=== PATIENT | male | born 1970 | race American Indian/Alaskan Native ===

== ENCOUNTER 2016-12-10 23:37 | Inpatient (IN) | payer OTHER ==
[2016-12-11 00:27] LABS: Basophils % (Auto) 0.9 % (0.0-1.8); Eosinophils % (Auto) 0.4 % (0.0-4.3); Hematocrit 38.5 % (35.5-45.6); Hemoglobin 12.7 gm/dl (11.8-15.2); Mean Corpuscular HGB Conc 33 % (32-34); Mean Corpuscular Hemoglobin 31 pg (28-32); Mean Corpuscular Volume 93 fl (84-94); Platelet Count 200 K/mm3 (140-440); Red Blood Count 4.14 M/mm3 (3.65-5.03); Red Cell Distribution Width 13.9 % (13.2-15.2)
[2016-12-11 00:37] LABS: INR 1.18 (0.87-1.13)
[2016-12-11 00:44] LABS: BUN/Creatinine Ratio 8.18; Blood Urea Nitrogen 9 mg/dL (9-20); Calcium 9.5 mg/dL (8.4-10.2); Carbon Dioxide 26 mmol/L (22-30); Chloride 100.5 mmol/L (98-107); Glucose 148 mg/dL (75-100); Potassium 3.9 mmol/L (3.6-5.0); Sodium 141 mmol/L (137-145)
[2016-12-11 00:44] LABS: Creatine Kinase MB 3.4 ng/mL (0.0-4.0)
[2016-12-11 00:45] LABS: BUN/Creatinine Ratio 8.18; Blood Urea Nitrogen 9 mg/dL (9-20); Calcium 9.3 mg/dL (8.4-10.2); Carbon Dioxide 24 mmol/L (22-30); Chloride 100.7 mmol/L (98-107); Creatine Kinase 555 units/L (55-170); Glucose 145 mg/dL (75-100); Potassium 3.9 mmol/L (3.6-5.0); Sodium 141 mmol/L (137-145)
[2016-12-11 00:47] LABS: Anion Gap 18 mmol/L
[2016-12-11 00:47] LABS: Anion Gap 20 mmol/L
[2016-12-11] MEDS ORDERED: NACL 0.9% 1000 ML 2,000 ML ONE ×3 (19:18→19:19)
[2016-12-11] MEDS ORDERED: SUBLIMAZE IV ONE (19:19)
--- NOTE | 2016-12-11 19:20 | Emergency Department Report ---
ED General Adult HPI - General Chief complaint: Chest Pain Stated complaint: GROIN PAIN Time Seen by Provider: 12/11/16 19:06 Source: patient, RN notes reviewed Mode of arrival: Ambulatory Limitations: No Limitations - History of Present Illness Initial comments: This is a 46-year-old male, previously unknown to me. Has a past medical history of hernia repair. He denies other past medical history, and denies cocaine use. Patient presents to the ER complaining of right groin pain. He reports the pain feels like his hernia. It is sharp. It intermittently radiates down the right lower extremity. Pain has been present for the past day or so. While in triage, the patient did admit to chest pain. The chest pain is central. To me, the patient admitted to nausea, and some diaphoresis. No vomiting. No abdominal pain. There is no posterior leg pain. No leg swelling. Denies recent trips greater than 4 hours. Denies recent hospital admissions. Denies testicular pain. -: Gradual Location: chest, pelvis Quality: aching Consistency: intermittent Improves with: none Worsens with: none Associated Symptoms: chest pain, diaphoresis - Related Data Allergies Allergy/AdvReac Type Severity Reaction Status Date / Time No Known Allergies Allergy Unverified 12/11/16 00:05 ED Review of Systems ROS: Stated complaint: GROIN PAIN Other details as noted in HPI Constitutional: denies: fever, malaise Eyes: denies: eye discharge ENT: denies: epistaxis Respiratory: see HPI Cardiovascular: chest pain Gastrointestinal: abdominal pain Genitourinary: denies: urgency, dysuria Musculoskeletal: denies: back pain Skin: denies: lesions Neurological: denies: weakness ED Past Medical Hx - Past Medical History Previous Medical History?: Yes Additional medical history: hernia repair - Surgical History Past Surgical History?: No - Social History Smoking Status: Current Every Day Smoker Substance Use Type: None ED Physical Exam - General Limitations: No Limitations General appearance: alert, in no apparent distress - Head Head exam: Present: atraumatic, normocephalic - Eye Eye exam: Present: normal appearance, EOMI. Absent: nystagmus - ENT ENT exam: Present: normal exam, normal orophraynx, mucous membranes moist - Neck Neck exam: Present: normal inspection, full ROM. Absent: tenderness, meningismus - Respiratory Respiratory exam: Present: normal lung sounds bilaterally. Absent: respiratory distress, wheezes, rales, rhonchi, stridor, chest wall tenderness - Cardiovascular Cardiovascular Exam: Present: normal rhythm, bradycardia, normal heart sounds. Absent: systolic murmur, diastolic murmur, rubs, gallop - GI/Abdominal GI/Abdominal exam: Present: soft, normal bowel sounds, hernia, other (there is a right-sided inguinal hernia which is somewhat tender. Difficult to reduce). Absent: distended, tenderness, guarding, rigid - Rectal Rectal exam: Present: deferred - Extremities Exam Extremities exam: Present: normal inspection, full ROM, normal capillary refill , other (there are 2+ pulses in 4 extremities.). Absent: tenderness, pedal edema, joint swelling, calf tenderness - Back Exam Back exam: Present: normal inspection, full ROM. Absent: tenderness, CVA tenderness (R), CVA tenderness (L), muscle spasm, paraspinal tenderness, vertebral tenderness - Neurological Exam Neurological exam: Present: alert, oriented X3, other (Extraocular movements intact. Tongue midline. No facial droop. Facial sensation intact to light touch in the V1, V2, V3 distribution bilaterally. 5 and 5 strength in 4 extremities.. Sensation is intact to light touch in 4 extremities.). Absent: motor sensory deficit - Psychiatric Psychiatric exam: Present: normal affect, normal mood - Skin Skin exam: Present: warm, dry, intact, normal color. Absent: rash ED Course Vital Signs 12/11/16 12/11/16 12/11/16 00:06 17:42 19:00 Temperature 98.4 F 98.1 F 98.0 F Pulse Rate 58 L 71 Respiratory 22 18 Rate Blood Pressure 108/64 Blood Pressure 140/82 [Left] O2 Sat by Pulse 100 100 Oximetry - Reevaluation(s) Reevaluation #1: 12/11/16 19:52 Differential diagnosis: Hernia, strangulated versus incarcerated; acute coronary syndrome, pneumonia, pulmonary embolus, dissection Assessment and plan: 46-year-old male with groin pain, and resolved chest pain. The patient is afebrile, and speaking on the phone, and looks quite comfortable. He has equal pulses in 4 extremities. His EKG is morphologically abnormal without prior for comparison. 2 large bore IVs are ordered and established. Fluids are ordered wide open. A stat CAT scan of the chest/ abdomen/pelvis is ordered to exclude dissection. While interviewing the patient , he is noted to have a blood pressure in the 60s. However he is mentating, is calm and collected, this hypotension may have been artifact, as a manual blood pressure reads in the 140s. However, given his chest pain and groin pain, as well as resolved hypotension, I think it is prudent to exclude dissection at this time. Reevaluation #2: 12/11/16 23:15 CAT scan of the chest, abdomen, pelvis negative for dissection. Inflamed hernia is suggested on CAT scan. Dr. Johnson, the hospital physician, accepts the patient to her service. Patient to be admitted for chest pain, abnormal EKG, further inpatient evaluation. ED Medical Decision Making - Lab Data Result diagrams: 12/11/16 00:08 12/11/16 00:18 Vital Signs 12/11/16 12/11/16 00:06 17:42 Temperature 98.4 F 98.1 F Pulse Rate 58 L Respiratory 22 Rate Blood Pressure 108/64 O2 Sat by Pulse 100 Oximetry Lab Results 12/11/16 12/11/16 12/11/16 Range/Units 00:08 00:08 00:08 WBC 7.0 (4.5-11.0) K/mm3 RBC 4.14 (3.65-5.03) M/mm3 Hgb 12.7 (11.8-15.2) gm/dl Hct 38.5 (35.5-45.6) % MCV 93 (84-94) fl MCH 31 (28-32) pg MCHC 33 (32-34) % RDW 13.9 (13.2-15.2) % Plt Count 200 (140-440) K/mm3 Lymph % (Auto) 36.8 H (13.4-35.0) % [place] % (Auto) 9.6 H (0.0-7.3) % Eos % (Auto) 0.4 (0.0-4.3) % Baso % (Auto) 0.9 (0.0-1.8) % Lymph # 2.6 (1.2-5.4) K/mm3 [place] # 0.7 (0.0-0.8) K/mm3 Eos # 0.0 (0.0-0.4) K/mm3 Baso # 0.1 (0.0-0.1) K/mm3 Seg Neutrophils % 52.3 (40.0-70.0) % Seg Neutrophils # 3.7 (1.8-7.7) K/mm3 PT 14.9 (12.2-14.9) Sec. INR 1.18 H (0.87-1.13) APTT 23.0 L (24.2-36.6) Sec. Sodium 141 (137-145) mmol/L Potassium 3.9 (3.6-5.0) mmol/L Chloride 100.7 (98-107) mmol/L Carbon Dioxide 24 (22-30) mmol/L Anion Gap 20 mmol/L BUN 9 (9-20) mg/dL Creatinine 1.1 (0.8-1.5) mg/dL Estimated GFR > 60 ml/min BUN/Creatinine Ratio 8.18 % Glucose 145 H (75-100) mg/dL Calcium 9.3 (8.4-10.2) mg/dL Total Creatine Kinase 555 H (55-170) units/L CK-MB (CK-2) 3.4 (0.0-4.0) ng/mL CK-MB (CK-2) Rel Index 0.6 (0-4) Troponin T < 0.010 (0.00-0.029) ng/mL 12/11/16 Range/Units 00:18 WBC (4.5-11.0) K/mm3 RBC (3.65-5.03) M/mm3 Hgb (11.8-15.2) gm/dl Hct (35.5-45.6) % MCV (84-94) fl MCH (28-32) pg MCHC (32-34) % RDW (13.2-15.2) % Plt Count (140-440) K/mm3 Lymph % (Auto) (13.4-35.0) % [place] % (Auto) (0.0-7.3) % Eos % (Auto) (0.0-4.3) % Baso % (Auto) (0.0-1.8) % Lymph # (1.2-5.4) K/mm3 [place] # (0.0-0.8) K/mm3 Eos # (0.0-0.4) K/mm3 Baso # (0.0-0.1) K/mm3 Seg Neutrophils % (40.0-70.0) % Seg Neutrophils # (1.8-7.7) K/mm3 PT (12.2-14.9) Sec. INR (0.87-1.13) APTT (24.2-36.6) Sec. Sodium 141 (137-145) mmol/L Potassium 3.9 (3.6-5.0) mmol/L Chloride 100.5 (98-107) mmol/L Carbon Dioxide 26 (22-30) mmol/L Anion Gap 18 mmol/L BUN 9 (9-20) mg/dL Creatinine 1.1 (0.8-1.5) mg/dL Estimated GFR > 60 ml/min BUN/Creatinine Ratio 8.18 % Glucose 148 H (75-100) mg/dL Calcium 9.5 (8.4-10.2) mg/dL Total Creatine Kinase (55-170) units/L CK-MB (CK-2) (0.0-4.0) ng/mL CK-MB (CK-2) Rel Index (0-4) Troponin T < 0.010 (0.00-0.029) ng/mL - EKG Data 12/11/16 19:53 sinus bradycardia, 56 bpm, T-wave inversion 3, aVF. Biphasic T waves V3, V4, V5, abnormal EKG, not consistent with STEMI. - Radiology Data Radiology results: report reviewed, image reviewed Chest x-ray negative. CAT scan of the chest, abdomen, pelvis negative for dissection. Right-sided hernia is noted, appears mildly edematous, possible mild inflammation. Critical care attestation.: If time is entered above; I have spent that time in minutes in the direct care of this critically ill patient, excluding procedure time. ED Disposition Clinical Impression: Chest pain, Abnormal EKG, Groin pain Disposition: OP ADMITTED IP TO THIS HOSP Is pt being admited?: Yes Does the pt Need Aspirin: Yes Condition: Good Instructions: Chest Pain (ED) Referrals: PRIMARY CARE, [Primary Care Provider] - 3-5 Days
[2016-12-11] MEDS ORDERED: NACL ONE (19:21)
[2016-12-11] MEDS ORDERED: NACL 0.9% 500 ML IV SCH (20:00)
--- NOTE | 2016-12-11 20:28 | Cat Scan Report ---
FINAL REPORT EXAM: CT ANGIO CHEST HISTORY: ? [id number] TECHNIQUE: CT chest CT angiogram with reconstructions PRIORS: None. FINDINGS: There is no evidence of filling defect within the central pulmonary vasculature to suggest the presence of acute pulmonary embolus. No evidence of mediastinal pathologic lymph node enlargement Heart and great vessels are unremarkable. The aorta is normal in caliber. There is no evidence of intimal flap within thoracic aorta to suggest presence of dissection. Some pulsation and streak artifact is noted at the aortic root. No focal pulmonary infiltrate identified. No pleural fluid collection seen. No acute pulmonary abnormality noted. Visualized portion of the upper abdomen demonstrates no acute change. IMPRESSION: No acute abnormality. No evidence for thoracic aortic dissection or aneurysm.
--- NOTE | 2016-12-11 20:29 | Cat Scan Report ---
FINAL REPORT EXAM: CT ANGIO ABDOMEN PELVIS HISTORY: ? [id number] TECHNIQUE: CT abdomen and pelvis with intravenous contrast CT angiogram with multiplanar and maximum intensity projection reconstructions PRIORS: None. FINDINGS: No acute abnormality identified in the lung bases. No focal abnormality identified within the liver parenchyma. The spleen demonstrates normal size and attenuation. No pancreatic abnormalities seen. The kidneys demonstrate symmetric contrast enhancement. No evidence of hydronephrosis. Note is made of 1 centimeter low-density focus lower pole the right kidney there are 2 low-density foci mid to lower left kidney 0.8 and 1.3 centimeters. These are most consistent with cysts. The adrenal glands are unremarkable Abdominal aorta is normal in caliber.. No evidence for intimal flap to suggest presence for dissection. No evidence for aneurysmal dilatation. The celiac and SMA are unremarkable. The renal arteries are normal in caliber. No evidence for stenosis. No pathologically enlarged lymph nodes are identified. No signs of free fluid or free air No evidence of small bowel dilatation. Colon is nondistended. No pericolonic inflammatory change. Urinary bladder is unremarkable. IMPRESSION: Renal cysts noted. No evidence for aortic dissection or aneurysm.
[2016-12-11] MEDS ORDERED: SUBLIMAZE ONE (21:41)
[2016-12-11] MEDS ORDERED: BABY ASPIRIN PO ONE (23:16)
--- NOTE | 2016-12-12 01:28 | Admit Criteria Form ---
Admission Criteria Documentation: CHEST PAIN: OBSERVATION CARE USE THIS FORM ONLY WHEN INPATIENT ADMISSION CRITERIA ARE NOT MET. (Place X for any and all applicable criteria): Placement for observation care may be appropriate for a patient with chest pain and ANY ONE of the following (1)(2)(3)(4)(5): []I. Suspected cardiac ischemia with nondiagnostic initial evaluation (eg, ECG, cardiac biomarkers) requiring further immediate evaluation such as stress testing and repeat laboratory testing to clarify diagnosis []II. Other suspected diagnosis requiring observation and monitoring during diagnostic evaluation (eg, pulmonary embolus, aortic dissection, pneumothorax, pericarditis, GI bleeding) (6)(7)(8)(9) [X]III. Other observation care needs (Use General Criteria: Observation Care) The original [employer] content created by [employer] has been revised. The portions of the content which have been revised are identified through the use of italic text, and [facility] [employer] has neither reviewed nor approved the modified material. All other unmodified content is copyright [facility] [email or web address]. Please see references footnoted in the original [employer] [employer] edition 2015 Admission Criteria Met: Pending
--- NOTE | 2016-12-12 02:09 | Admit Criteria Form ---
Admission Criteria Documentation: CARDIOLOGY GRG Clinical Indications for Admission to Inpatient Care ( Place 'X' for any and all applicable criteria): Hospital admission is needed for appropriate care of the patient because of ANY ONE of the following (1): [ ] I. Hemodynamic instability as indicated by ALL of the following (1)(2)(3) (4)(5) [ ]a) Vital signs or other findings not as expected for chronic patient condition or baseline [ ]b) Instability indicated by ANY ONE of the following: [ ]i) Hypotension [ ]ii) Symptomatic Tachycardia unresponsive to treatment ( e.g., analgesia, fluids, sedation as indicated) [ ]iii) Inadequate perfusion indicated by ANY ONE of the following: [ ] 1) Lactic acidosis (> 2 mmol/L) [ ] 2) New abnormal capillary refill (> 3 seconds) [ ] 3) Reduced urine output [ ] 4) New altered mental status [ ]iv) Orthostatic vital sign changes unresponsive to treatment (e.g., fluids) [ ]v) IV inotropic or vasopressor medication required to maintain adequate blood pressure or perfusion [ ] II. Severe heart failure as indicated by ANY ONE of the following(17)(18) [ ]a) Respiratory distress [ ]b) Hypotension [ ]c) Anasarca (refractory to outpatient therapy) [ ]d) Cardiac arrhythmias of immediate concern [ ]e) Myocardial ischemia [ ] III. Cardiac arrhythmias or findings of immediate concern indicated by ANY ONE of the following (19)(20): [ ] a) Heart rhythms that are inherently dangerous or unstable indicated by ANY ONE of the following (21)(22)(23): [ ] i) Resuscitated ventricular fibrillation or cardiac arrest [ ] ii) Ventricular escape rhythm [ ] iii) Sustained ventricular tachycardia (30 seconds or more of ventricular rhythm at greater than 100 beats per minute) [ ] iv) Nonsustained ventricular tachycardia and ANY ONE of the following: [ ] 1) Suspected cardiac ischemia as cause or consequence of ventricular tachycardia [ ] 2) In setting of acute myocarditis [ ] b) Unstable cardiac conduction defects indicated by ANY ONE of the following(23)(24)(25) [ ] i) Type II second-degree atrioventricular block [ ]ii) Third-degree atrioventricular block [ ]iii) New-onset left bundle branch block with suspected myocardial ischemia [ ]c) Any heart rhythm and ANY ONE of the following (21)(22)(26)(27) (28) [ ] i) Continuous long-term ECG monitoring needed (e.g., initiation of drug requiring monitoring for more than 24 hours) [ ] ii) Patient has automatic implanted cardioverter defibrillator that is repeatedly firing, malfunctioning, or in need of immediate adjustment of settings beyond the scope of ambulatory or observation care [ ]d) Heart rhythms of concern due to ANY ONE of the following: [ ] i) Hypotension [ ] ii) Respiratory distress [ ] iii) Association with other significant symptoms (e.g., bradycardia with syncope or ongoing dizziness, supraventricular tachycardia with chest pain (14)(15)(17) [ ] IV. Monitoring for cardiac contusion beyond the scope of observation care needed [A](30)(31)(32) [ ] V. Surgical or device complication (e.g., valve replacement complication , pacemaker dysfunction) (35)(41)(44)(45)(46) [ ] . Inpatient palliative care needed. [B](49) Also use Inpatient Palliative Care Criteria [ ] VII. Nonbacterial thrombotic (marantic) endocarditis (36)(43)(47)(48) [ X] VIII. Cardiology condition, symptom, or finding for which emergency and observation care has failed or are not considered appropriate. [ ] IX. Acute valvular disease requiring inpatient as indicated by ANY ONE of the following (41) [ ]a) Acute valvular regurgitation (42) [ ]b) Noninfectious valvulitis (43) [ ]c) Obstructive valve thrombosis [ ]d) Paravalvular leak [ ]e) Other significant valvular disorder remaining after emergency or observation level of care (as appropriate) [ ]X. Pericardial disease requiring inpatient treatment as indicated by ANY ONE of the following (33)(34)(35)(36)(37) [ ]a) Suspected tamponade (38)(39)(40) [ ]b) Hemopericardium [ ]c) Other significant pericardial disorder remaining after emergency or observation level of care (as appropriate) [ ] XI. Cardiac ischemia beyond scope of emergency and observation care. [ ] XII. Hypertension requiring inpatient treatment as indicated by ANY ONE of the following (6)(7)(8) [ ]a) SBP greater than 220 mm Hg or DBP greater than 120 mmHg despite treatment [ ]b) SBP greater than 140 mm Hg or DBP greater than 100 mm Hg with evidence of acute end organ damage as indicated by ANY ONE of the following [ ] i) Altered mental status [ ] ii) Acute renal failure as indicated by new onset of ANY ONE of the following (9)(10)(11)(12)(13) [ ]1) 3-fold rise in serum creatinine from baseline [ ]2) Serum creatinine greater than 4 mg/dL ( 354 micromoles/L) with acute rise greater than 0.5 mg/dL (44.2 micromoles/L) [ ]3) Reduction of more than 75% in estimated glomerular filtration rate from baseline [ ]4) Estimated glomerular filtration rate less than 35 mL/min/1.73m2 (0.59 mL/sec/1.73m2) in child up to 18 years of age [ ]5) Cessation of urine output indicated by ALL of the following [ ]A. Adequate volume status [ ]B. Inadequate urine output as indicated by ANY ONE of the following [ ]a. Urine output less than 0.3 mL/kg/hr for 24 hours [ ]b. Anuria (urine output less than 0.1 mL/kg/hr) for 12 hours [ ] iii) Aortic dissection [ ] iv) Myocardial Ischemia [ ] v) Left ventricular heart failure [ ]vi) Retinal Hemorrhage [ ]vii) Other significant finding [ ]c) Hypertension in child requiring inpatient treatment as indicated by ALL of the following(14)(15)(16) [ ] i) Outpatient treatment not effective, not available, or not appropriate [ ]ii) SBP or DBP greater than 95th percentile for age [ ]iii) Evidence of acute end organ damage as indicated by ANY ONE of the following [ ]1) Altered mental status [ ]2) Acute renal failure as indicated by new onset of ANY ONE of the following(9)(10)(11)(12)(13) [ ]A. 3-fold rise in serum creatinine from baseline [ ]B. Serum creatinine greater than 4 mg/dL (354 micromoles/L) with acute rise greater than 0.5 mg/dL (44.2 micromoles/L) [ ]C. Reduction of more than 75% in estimated glomerular filtration rate from baseline [ ]D. Estimated glomerular filtration rate less than 35 mL/min/1.73m2 (0.59 mL/sec/1.73m2) in child up to 18 years of age [ ]E. Cessation of urine output indicated by ALL of the following [ ]a. Adequate volume status [ ]b. Inadequate urine output as indicated by ANY ONE of the following [ ]i) Urine output less than 0.3 mL/kg/hr for 24 hours [ ]ii) Anuria ( urine output less than 0.1 mL/kg/hr) for 12 hours [ ]3) Severe headache [ ]4) Visual disturbance [ ]5) Retinal hemorrhage [ ]6) Other significant finding [ ]XIII. Complications of transplanted heart indicated by ANY ONE of the following(61): [ ]a) Acute graft rejection requiring inpatient management (eg, intravenous immunosuppression)(62)(63) [ ]b) Acute graft heart failure indicated by ANY ONE of the following(64): [ ]i) Hemodynamic instability [ ]ii) Cardiac arrhythmias of immediate concern [ ]iii) Pulmonary edema that is very severe (eg, mechanical ventilation needed, imminent or likely, need for 100% oxygen to keep oxygen saturation above 90%) [ ]iv) Pulmonary edema that is persistent as indicated by ALL of the following: [ ]1) New need for oxygen therapy to keep oxygen saturation above 90% (or increased FiO2 need from baseline) [ ]2) Has not improved sufficiently with emergency department or observation care IV diuretics or other heart failure treatments[E] [ ]v) Altered mental status that is severe or persistent [ ]vi) Increased creatinine (new on laboratory test) with reduction of more than 50% in estimated glomerular filtration rate from baseline [ ]vii) Progressively (ongoing) rising creatinine (known from past laboratory test) with reduction of more than 25% in estimated glomerular filtration rate from baseline [ ]viii) Acute renal failure [ ]ix) Acute peripheral ischemia (eg, examination shows pulseless, cool, mottled, or cyanotic extremity) [ ]x) Pulmonary artery catheter monitoring needed [ ]xi) Other sign or symptom of heart failure requiring inpatient treatment (ie, too severe or not responsive to outpatient and observation care treatment) [ ]c) Infection requiring inpatient management (eg, Hemodynamic instability, need for intravenous antimicrobial treatment)(66)(67)(68)(69)(70) [ ]d) Cardiac allograft vasculopathy requiring inpatient management ( eg evidence of cardiac ischemia)(71) [ ]e) Other complication of transplanted heart (eg, stroke, severe pulmonary hypertension, severe valvular dysfunction) requiring inpatient management(72) The original [facility] [employer] content created by [facility] has been revised. The portions of the content which have been revised are identified through the use of italic text or in bold, and [facility] has neither reviewed nor approved the modified material. All other unmodified content is copyright [facility] [employer]. Please see references footnoted in the original [facility] [employer] edition 2016 Admission Criteria Met: Yes
[2016-12-12] MEDS ORDERED: DULCOLAX PR PRN (02:22)
[2016-12-12] MEDS ORDERED: SODIUM CHLORIDE FLUSH SYRINGE 10 ML IV PRN (02:22)
[2016-12-12] MEDS ORDERED: ZOFRAN IV PRN (02:22)
[2016-12-12] MEDS ORDERED: TYLENOL PO PRN (02:22)
[2016-12-12] MEDS ORDERED: MILK OF MAGNESIA PO PRN (02:22)
[2016-12-12 03:21] LABS: Basophils % (Auto) 0.8 % (0.0-1.8); Eosinophils % (Auto) 4.5 % (0.0-4.3); Hematocrit 35.8 % (35.5-45.6); Hemoglobin 11.9 gm/dl (11.8-15.2); Mean Corpuscular HGB Conc 33 % (32-34); Mean Corpuscular Hemoglobin 31 pg (28-32); Mean Corpuscular Volume 92 fl (84-94); Platelet Count 168 K/mm3 (140-440); Red Blood Count 3.88 M/mm3 (3.65-5.03); White Blood Count 6.7 K/mm3 (4.5-11.0)
[2016-12-12 03:44] LABS: BUN/Creatinine Ratio 11.11; Blood Urea Nitrogen 10 mg/dL (9-20); Calcium 8.2 mg/dL (8.4-10.2); Carbon Dioxide 27 mmol/L (22-30); Chloride 103.6 mmol/L (98-107); Glucose 112 mg/dL (75-100); Potassium 3.9 mmol/L (3.6-5.0); Sodium 139 mmol/L (137-145)
[2016-12-12 03:46] LABS: Creatine Kinase MB 2.7 ng/mL (0.0-4.0)
[2016-12-12 03:48] LABS: Anion Gap 12 mmol/L
--- NOTE | 2016-12-12 06:09 | History and Physical Report ---
History of Present Illness Date of examination: 12/12/16 Date of admission: 12/11/16 23:15 History of present illness: This a 46-year-old man with no medical problem comes emergency room with complaints of left chest pain. Pain is in the left chest which she describes as sharp pain, intermittent in nature lasting for 5 minutes, no radiation, intensity 6/10, he cannot identify exacerbating or relieving factors. He admits to nausea, diaphoresis, no palpitations, no previous stress tests. Also complaining of right groin pain which she status a constant pain, sharp started yesterday, intensity 8/10 radiating down to the knee area patient has a hernia repair done in that area Patient denies cough, abdominal pain, hematochezia, dysuria, frequency, focal weakness, dysarthria, fever chills, polydipsia polyuria, hot or cold intolerance , easy bruisability, or rash or bleeding from mucosal membrane, rhinorrhea, epistaxis, earache, tinnitus, blurry vision, eye discharge, anxiety, depression. Other review of systems negative PAST SURGICAL HISTORY:hernia repair SOCIAL HISTORY: Denies alcohol, tobacco, drugs FAMILY HISTORY: Hypertension Medications and Allergies Allergies Allergy/AdvReac Type Severity Reaction Status Date / Time No Known Allergies Allergy Unverified 12/11/16 00:05 Home Medications Medication Instructions Recorded Confirmed Last Taken Type No Known Home Medications [No 12/11/16 12/11/16 Unknown History Reported Home Medications] Active Meds: Active Medications Acetaminophen (Tylenol) 650 mg PO Q4H PRN PRN Reason: Pain MILD(1-3)/Fever >100.5/WARNER Aspirin (Baby Aspirin) 81 mg PO QDAY CAT Bisacodyl (Dulcolax) 10 mg FL QDAY PRN PRN Reason: Constipation unrelieved by MOM Enoxaparin Sodium (Lovenox) 40 mg SUB-Q QDAY CAT Magnesium Hydroxide (Milk Of Magnesia) 30 ml PO Q4H PRN PRN Reason: Constipation Morphine Sulfate (Morphine) 2 mg IV Q4H PRN PRN Reason: Pain, Moderate (4-6) Ondansetron HCl (Zofran) 4 mg IV Q8H PRN PRN Reason: N/V unrelieved by Reglan Sodium Chloride (Sodium Chloride Flush Syringe 10 Ml) 10 ml IV PRN PRN PRN Reason: LINE FLUSH Exam - Physical Exam Narrative exam: Gen. appearance: Patient lying in bed, no apparent distress HEENT: Normocephalic, atraumatic, pupils equally round and reactive to light, extraocular movement intact, and no sclericterus,. No JVD or thyromegaly or nodule,neck supple, no carotid bruit ,mucous membranes moist, no exudate or erythema Heart: S1, S2, regular rate and rhythm Lungs: Clear to auscultation bilaterally, breathing comfortable Abdomen: Positive bowel sounds, nontender, nondistended, no organomegaly Extremity: No edema, cyanosis, clubbing Skin: No rash, nodules, warm, dry Neuro: Oriented 3, cranial nerves II-12 intact, speech is fluent, motor and sensory intact - Constitutional Vitals: Temp Pulse Resp BP Pulse Ox 98.2 F 89 20 123/71 99 12/12/16 05:07 12/12/16 05:07 12/12/16 05:07 12/12/16 05:07 12/12/16 05:07 Results - Labs CBC & Chem 7: 12/12/16 02:47 12/12/16 02:47 Labs: Abnormal lab results 12/12/16 12/12/16 12/12/16 Range/Units 02:47 02:47 02:47 Lymph % (Auto) 46.5 H (13.4-35.0) % Nelson % (Auto) 9.0 H (0.0-7.3) % Eos % (Auto) 4.5 H (0.0-4.3) % Seg Neutrophils % 39.2 L (40.0-70.0) % Glucose 112 H (75-100) mg/dL Calcium 8.2 L (8.4-10.2) mg/dL Total Creatine Kinase 368 H (55-170) units/L - Imaging and Cardiology EKG: image reviewed (nsr 56) Chest x-ray: image reviewed CT scan - abdomen: report reviewed CT scan - chest: report reviewed Assessment and Plan Groin pain, rule out of hernia recurrence Chest pain, rule out ACS Admit to medicine Consults surgery, check cardiac enzymes, lipid profile and obtain a stress test Start aspirin, IV morphine and DVT prophylaxis
--- NOTE | 2016-12-12 09:00 | XRay Report ---
CHEST ONE VIEW INDICATION: Chest pain. COMPARISON: Accompanying CTA. FINDINGS: Portable, single, frontal chest radiograph demonstrates normal cardiomediastinal silhouette. Clear lungs. Unremarkable bones. Extrinsic EKG leads. CONCLUSION: No acute disease in the chest. Thank you for the opportunity to participate in this patient's care.
--- NOTE | 2016-12-12 10:32 | Treadmill Report ---
NUCLEAR STRESS TEST REASON FOR STUDY: Chest pain. READING PHYSICIAN: Sergio Trammell MD IMAGING PROTOCOL: The patient received 10 mCi of Technetium 99m Tetrofosmin for resting image and 28 mCi of Technetium 99m Tetrofosmin for stress imaging. The imaging for the whole procedure was completed 30-90 minutes following the initial injection of Technetium 99m tetrofosmin. The SPECT imaging in the 180 degree arc was performed in the right anterior oblique projection. Computerized reconstruction of the images was performed for analysis. IMAGING RESULTS: Normal cavity size from stress to rest. Normal distribution of radionuclide in the anterior, inferior, septal, and apical regions. Gated SPECT, EF on visualization appears to be around 45-50%. The patient exercised on Frank protocol for 12 minutes and 30 seconds, had no exaggerated BP response to exercise, no EKG changes suggestive of ischemia, achieved 84% maximum heart rate. SUMMARY: 1. Negative treadmill EKG. 2. Excellent exercise capacity, 12-1/2 minutes on Frank protocol. 3. No exaggerated BP response to exercise. 4. Normal rest and stress myocardial perfusion scan. No significant stress ischemia. No wall motion abnormality. Gated SPECT, EF around 45-50%. JOB# [id number] BASSAM/MICHELLE
[2016-12-12] MEDS: LOVENOX SUB-Q SCH (10:41)
[2016-12-12] MEDS: MORPHINE IV PRN ×3 (10:42→22:07)
[2016-12-12] MEDS: BABY ASPIRIN PO SCH (10:42)
--- NOTE | 2016-12-12 14:04 | Progress Note ---
Assessment and Plan [facility] normal Antoine needs out pt eval no ghematuria consult dictated Subjective Date of service: 12/12/16 Principal diagnosis: prostate check Objective - Constitutional Vitals: Vital Signs - 12hr 12/12/16 12/12/16 12/12/16 05:07 10:00 12:00 Temperature 98.2 F 98.0 F Pulse Rate [ 89 84 Radial] Respiratory 20 18 Rate Blood Pressure 123/71 124/80 [Left Arm] O2 Sat by Pulse 99 98 99 Oximetry General appearance: Present: no acute distress - Neck Neck: supple - Respiratory Respiratory effort: normal Extremities: no ischemia - Gastrointestinal General gastrointestinal: Present: soft, non-tender - Labs CBC & Chem 7: 12/12/16 02:47 12/12/16 02:47 Labs: Abnormal lab results 12/12/16 12/12/16 12/12/16 Range/Units 02:47 02:47 02:47 Lymph % (Auto) 46.5 H (13.4-35.0) % [place] % (Auto) 9.0 H (0.0-7.3) % Eos % (Auto) 4.5 H (0.0-4.3) % Seg Neutrophils % 39.2 L (40.0-70.0) % Glucose 112 H (75-100) mg/dL Calcium 8.2 L (8.4-10.2) mg/dL Total Creatine Kinase 368 H (55-170) units/L
--- NOTE | 2016-12-12 16:45 | Anesthesia Consultation ---
Anesthesia Consult and Med Hx - Airway Anesthetic Teeth Evaluation: Good (Patient denies any dental issues - some teeth may be missing) ROM Head & Neck: Adequate Mental/Hyoid Distance: Adequate Mallampati Class: Class III Intubation Access Assessment: Possibly Difficult (Anterior - could not see much in back of mouth) - Pulmonary Exam CTA: Yes - Cardiac Exam Cardiac Exam: RRR (Patient admitted with chest pain - tests that have been done do not indicate a cardiac issue) - Pre-Operative Health Status ASA Pre-Surgery Classification: ASA1 (Patient takes no at home meds. indicates no health problems other than groin pain.), ASA2 Proposed Anesthetic Plan: General (Patient has painful recall from previous hernia surgery - asked that the anesthesia be increased 3 fold - pt informed not possible; but a a BIS moniter could be used - he agreed.) - Pulmonary Hx Smoking: (patient denies ) - Cardiovascular System Hx Coronary Artery Disease: (see cardiac note under heart rate above)
--- NOTE | 2016-12-12 16:51 | Anesthesia Consultation ---
Anesthesia Consult and Med Hx Date of service: 12/12/16 - Airway Anesthetic Teeth Evaluation: Good (Patient denies any dental issues - some may be missing) ROM Head & Neck: Adequate Mental/Hyoid Distance: Adequate Mallampati Class: Class III Intubation Access Assessment: Possibly Difficult - Pulmonary Exam CTA: Yes - Cardiac Exam Cardiac Exam: RRR - Pre-Operative Health Status ASA Pre-Surgery Classification: ASA2 Proposed Anesthetic Plan: General (When patient had first hernia surgery, he says he was )
--- NOTE | 2016-12-13 03:41 | Consultation ---
HISTORY OF PRESENT ILLNESS: The patient is a 46-year-old gentleman who presents with recurrent inguinal hernia. He is surgery. He wanted to have his prostate checked while he was in the hospital. He denies any family history of prostatism and other than occasional frequency, he has a good flow. He has never had any manipulation. PAST MEDICAL HISTORY: Hernia repair. SOCIAL HISTORY: Denied. FAMILY HISTORY: Other than vascular disease, negative. ALLERGIES: Negative. MEDICATIONS: Regularly negative. REVIEW OF SYSTEMS: He has no gross hematuria, no dysuria, no discharge. PHYSICAL EXAMINATION: GENERAL: He is awake, alert. He is in no distress. ABDOMEN: Soft, nondistended. Right inguinal hernia. GENITOURINARY: Genitalia, circumcised, testes descended bilaterally. Right hernia is noted. Digital rectal exam normal sphincter tone, 10-15 gram prostate, no nodules. IMPRESSION: Normal exam. He is being evaluated for hernia surgery tomorrow. He will need outpatient evaluation with a PSA and an exam, which I explained to him over the next month or two after he recovers. He understands this and we will follow him up as an outpatient. JOB# [id number] ROMERO/MICHELLE
--- NOTE | 2016-12-13 05:14 | Consultation ---
HISTORY OF PRESENT ILLNESS: The patient was seen yesterday. He was admitted to the hospital because of severe pain that he developed in the right inguinal area for about 2 days' duration. He had nausea, but no vomiting. He gives a history of right inguinal hernia repaired 2 years ago. He is a bus or truck garage mechanic and this gave him pain at that point and he had an operation. He has been doing fairly well without any problem. He continued driving his truck without any problem. The patient was admitted by Dr. Debbie Johnson, who saw him this roll builder and according to the notes, the pain was continuous as mentioned above, and he could feel as if there is something there. CAT scan that showed evidence of hernia in the area. Along with that the patient complains of frequency and urgency. He goes to the bathroom 3 to 4 times every night. He never had any other operation. He is not allergic to any medicines. He does not take any medications on a regular basis. PHYSICAL EXAMINATION: GENERAL: At this point showed well preserved healthy man. He is in no distress. He is in pain; however, to the right inguinal area. He is taking his lunch. HEAD AND NECK: Negative. NECK: Supple. CHEST: Essentially clear. HEART: Sounds normal. ABDOMEN: Protuberant, soft. There is well localized tenderness in the right inguinal aspect with fullness in the area with soft tissue mass that presents to be about 3 x 3 x 2 cm. It is fairly tender. GENITALIA: Showed normal male genitalia. EXTREMITIES: Showed no significant edema. IMPRESSION AND PLAN: Recurrent right inguinal hernia ? status post surgery 2 years ago. rule out benign prostatic hyperplasia. I had a lengthy talk with the patient as to the continuity of his pain. This would require surgical intervention. I would like to do it as soon as possible. We will have to do this not today, tomorrow morning and the reason that he was eating when I saw him, so he gave us the permission to do that. I have got to call to see him because of the above symptoms of his prostate. Upon admission, his creatinine was 1.1, today is 0.9. His white count is 6.7 today. This patient is for surgery. I am going to have Dr. Pickens to see him and then we will go from there. [facility]# [id number] GENTRY/MICHELLE LIVING[place]ON
[2016-12-13] MEDS ORDERED: LACTATED RINGERS 1,000 ML IV SCH (07:00)
[2016-12-13] MEDS ORDERED: PEPCID IV NR ×2 (07:00→14:00)
[2016-12-13] MEDS ORDERED: VERSED IV NR (07:00)
[2016-12-13] MEDS: MORPHINE IV PRN ×2 (08:42→20:43)
[2016-12-13] MEDS: BABY ASPIRIN PO SCH (09:40)
[2016-12-13] MEDS: LOVENOX SUB-Q SCH (09:41)
--- NOTE | 2016-12-13 10:03 | Progress Note ---
Assessment and Plan Assessment and plan: 1. Chest pain. Exercise stress thallium was found to be negative. Etiology is likely secondary to GERD. 2. GERD. Protonix daily. 3. Recurrent right inguinal hernia. Patient for surgery today. History Interval history: No new complaints. No chest pain no shortness of breath. Hospitalist Physical - Constitutional Vitals: Temp Pulse Resp BP Pulse Ox 98.3 F 58 L 20 122/70 100 12/13/16 05:10 12/13/16 05:10 12/13/16 08:42 12/13/16 05:10 12/13/16 08:36 General appearance: Present: no acute distress - EENT Eyes: Present: PERRL, EOM intact ENT: hearing intact, clear oral mucosa, dentition normal - Neck Neck: Present: supple, normal ROM - Respiratory Respiratory effort: normal Respiratory: bilateral: CTA - Cardiovascular Rhythm: regular Heart Sounds: Present: S1 & S2. Absent: gallop, rub - Extremities Extremities: no ischemia, No edema, Full ROM - Abdominal General gastrointestinal: soft, non-tender, non-distended, normal bowel sounds - Integumentary Integumentary: Present: clear, warm, dry - Neurologic Neurologic: CNII-XII intact, moves all extremities Results - Labs CBC & Chem 7: 12/12/16 02:47 12/12/16 02:47 Labs: Laboratory Last Values WBC 6.7 K/mm3 (4.5-11.0) 12/12/16 02:47 RBC 3.88 M/mm3 (3.65-5.03) 12/12/16 02:47 Hgb 11.9 gm/dl (11.8-15.2) 12/12/16 02:47 Hct 35.8 % (35.5-45.6) 12/12/16 02:47 MCV 92 fl (84-94) 12/12/16 02:47 MCH 31 pg (28-32) 12/12/16 02:47 MCHC 33 % (32-34) 12/12/16 02:47 RDW 14.0 % (13.2-15.2) 12/12/16 02:47 Plt Count 168 K/mm3 (140-440) 12/12/16 02:47 Lymph % (Auto) 46.5 % (13.4-35.0) H 12/12/16 02:47 [place] % (Auto) 9.0 % (0.0-7.3) H 12/12/16 02:47 Eos % (Auto) 4.5 % (0.0-4.3) H 12/12/16 02:47 Baso % (Auto) 0.8 % (0.0-1.8) 12/12/16 02:47 Lymph # 3.1 K/mm3 (1.2-5.4) 12/12/16 02:47 [place]oca # 0.6 K/mm3 (0.0-0.8) 12/12/16 02:47 Eos # 0.3 K/mm3 (0.0-0.4) 12/12/16 02:47 Baso # 0.1 K/mm3 (0.0-0.1) 12/12/16 02:47 Seg Neutrophils % 39.2 % (40.0-70.0) L 12/12/16 02:47 Seg Neutrophils # 2.6 K/mm3 (1.8-7.7) 12/12/16 02:47 PT 14.9 Sec. (12.2-14.9) 12/11/16 00:08 INR 1.18 (0.87-1.13) H 12/11/16 00:08 APTT 23.0 Sec. (24.2-36.6) L 12/11/16 00:08 Sodium 139 mmol/L (137-145) 12/12/16 02:47 Potassium 3.9 mmol/L (3.6-5.0) 12/12/16 02:47 Chloride 103.6 mmol/L (98-107) 12/12/16 02:47 Carbon Dioxide 27 mmol/L (22-30) 12/12/16 02:47 Anion Gap 12 mmol/L 12/12/16 02:47 BUN 10 mg/dL (9-20) 12/12/16 02:47 Creatinine 0.9 mg/dL (0.8-1.5) 12/12/16 02:47 Estimated GFR > 60 ml/min 12/12/16 02:47 BUN/Creatinine Ratio 11.11 % 12/12/16 02:47 Glucose 112 mg/dL (75-100) H 12/12/16 02:47 Lactic Acid 0.7 mmol/L (0.7-2.0) 12/11/16 19:48 Calcium 8.2 mg/dL (8.4-10.2) L 12/12/16 02:47 Total Creatine Kinase 368 units/L (55-170) H 12/12/16 02:47 CK-MB (CK-2) 2.7 ng/mL (0.0-4.0) 12/12/16 02:47 CK-MB (CK-2) Rel Index 0.7 (0-4) 12/12/16 02:47 Troponin T < 0.010 ng/mL (0.00-0.029) 12/11/16 00:18 Triglycerides 68 mg/dL (2-149) 12/12/16 02:47 Cholesterol 126 mg/dL (50-199) 12/12/16 02:47 LDL Cholesterol Direct 72 mg/dL (50-130) 12/12/16 02:47 HDL Cholesterol 41 mg/dL (40-59) 12/12/16 02:47 Cholesterol/HDL Ratio 3.07 % 12/12/16 02:47 Prostate Specific Ag 0.66 ng/mL (0.00-4.00) 12/12/16 17:33
[2016-12-13] MEDS ORDERED: XYLOCAINE MPF 2% ONE (14:24)
[2016-12-13] MEDS ORDERED: DIPRIVAN 10 MG/ML IV ONE (14:24)
[2016-12-13] MEDS ORDERED: DILAUDID ONE (14:25)
[2016-12-13] MEDS ORDERED: DECADRON ONE (14:27)
[2016-12-13] MEDS ORDERED: ZOFRAN ONE (14:27)
[2016-12-13] MEDS ORDERED: METHYLENE BLUE ONE (14:30)
[2016-12-13] MEDS ORDERED: VERSED IV ONE (14:59)
[2016-12-13] MEDS ORDERED: ANCEF/STERILE WATER 2 GM/20 ML IV NR (15:00)
[2016-12-13] MEDS ORDERED: NACL 0.9% 1000 ML 1,000 ML ONE ×2 (15:23→17:39)
[2016-12-13] MEDS ORDERED: NACL 0.9% IR ONE (15:51)
[2016-12-13] MEDS ORDERED: MARCAINE 0.5% INFILTRATI ONE (15:52)
[2016-12-13] MEDS ORDERED: APRESOLINE ONE (18:09)
[2016-12-13] MEDS ORDERED: APRESOLINE IV PRN (18:16)
[2016-12-13] MEDS: DILAUDID IV PRN ×2 (18:42→18:59)
--- NOTE | 2016-12-14 00:45 | Operative Report ---
PREOPERATIVE DIAGNOSIS: Right inguinal mass hernia. POSTOPERATIVE DIAGNOSES: 1. Right inguinal mass hernia with widened external ring. 2. Mass in the inguinal area that is about 3 x 3 cm with fat necrosis and ? urinary bladder diverticulum. 3. Pending final pathology report. ANESTHESIA: General with use of LMA. FINDINGS: The patient had a widened canal and the external ring was very wide to me, a good 3.5-4 cm within some omental tissue and superior to that, there was a cystic mass that may be necrosis of the portion of the omentum. This was removed in toto. I was concerned whether this may represent a diverticulum of the urinary bladder. Anesthesia using the LMA for that purpose, I did infiltrate the area with 10 mL of 0.25% Marcaine. DESCRIPTION OF PROCEDURE: With the patient in supine position, prepped and draped in usual fashion, I made an incision over the old scar, deepened to subcutaneous tissue. I had to extend the scar of the incision little bit superiorly for about 2.5 cm to reach the area. As mentioned above, the external aponeurosis was then incised along its fibers. The external ring was very wide. Within the ring, there was a portion of the omentum. This was delivered within the abdominal cavity. Then, superior and the inferior, there is a cystic mass. This was about 2.5 x 2.5 cm that looked cystic to me. I had to dissect it at the end of the operation. DESCRIPTION OF PROCEDURE: With the patient in supine position, as mentioned above, I was able to reach the spermatic cord. Then, the external ring was closed interruptedly using for that purpose 2-0 Ethibond. Then, I did use a ____ graft, tacking it to the fascia with use of continuous stitch ____ with using for that purpose 2-0 Prolene all around, and then above the reconstructed internal ring with the same and then inferiorly to the lateral side to reflect that part of the ilioinguinal ligament. Once I was satisfied we had good hemostasis. I did notice that there was a mass in the subcutaneous tissue, to me it was about 2.5 x 2.5 cm, looked cystic to me. I was able to dissect it completely and apparently tongue of the omentum, may be a cystic degeneration of that area. This was excised in toto with 2 sutures of the same and by this, I removed it. Once I was well satisfied had good hemostasis, then the fascia was closed with a continuous stitch of 3-0 Vicryl and the skin with love. The patient was then transferred to the recovery room in good condition. I did give him methylene blue and it showed in the Islas catheter and then the urinary bladder. The urine output during that time was about 50 mL. The patient was then transferred to the recovery room in good condition. JOB# [id number] GENTRY/MICHELLE
[2016-12-14] MEDS: MORPHINE IV PRN ×3 (00:50→08:21)
[2016-12-14 08:44] VITALS: BP 141/94
[2016-12-14] MEDS: BABY ASPIRIN PO SCH (09:31)
[2016-12-14] MEDS: LOVENOX SUB-Q SCH (09:31)
--- NOTE | 2016-12-14 10:29 | Discharge Summary ---
Providers - Providers Date of Admission: 12/11/16 23:15 Date of discharge: 12/14/16 Attending physician: TANIA LINDSEY 12/12/16 14:01 Consult to Physician [CONS] Routine Consulting Provider: TOMA KO Reason For Exam: Prostate check Place consult to:: Dr. Ko Notified:: Onome Comment:: already aware of consult Primary care physician: WELT ROUGHER Hospitalization Reason for admission: chest pain Condition: Good Hospital course: This is a 46-year-old male who presented through the emergency department with complaints of left-sided chest pain and right groin pain. Patient underwent evaluation for the chest pain with stress test that was found to be negative. Etiology of chest pain was felt to be secondary to GERD. The right groin pain was attributed to recurrent inguinal hernia that was evaluated by surgery. Patient underwent evaluation by urology as well for possible BPH. Patient had inguinal repair surgery and was stable postoperatively. Urology recommended outpatient evaluation on Saturday or Saturday. Patient will be discharged with pain medications and follow-up instructions. Dedicated discharge time 35 minutes. Disposition: DISCHARGED TO HOME OR SELFCARE Time spent for discharge: 35 - Discharge Diagnoses (1) Chest pain Status: Acute (2) Groin pain Status: Acute (3) Inguinal hernia recurrent unilateral Status: Acute (4) GERD (gastroesophageal reflux disease) Status: Acute Core Measure Documentation - Palliative Care Palliative Care/ Comfort Measures: Not Applicable - Core Measures Any of the following diagnoses?: none Exam - Constitutional Vitals: Temp Pulse Resp BP Pulse Ox 98.3 F 66 18 141/94 99 12/14/16 08:42 12/14/16 08:42 12/14/16 08:42 12/14/16 08:42 12/14/16 08:42 General appearance: Present: no acute distress, well-nourished - EENT Eyes: Present: PERRL ENT: hearing intact, clear oral mucosa - Neck Neck: Present: supple, normal ROM - Respiratory Respiratory effort: normal Respiratory: bilateral: CTA - Cardiovascular Heart Sounds: Present: S1 & S2. Absent: rub, click - Extremities Extremities: pulses symmetrical, No edema Extremity abnormal: other (right inguinal dressing clean and dry) Peripheral Pulses: within normal limits - Abdominal General gastrointestinal: Present: soft, non-tender, non-distended, normal bowel sounds Male genitourinary: Present: normal - Integumentary Integumentary: Present: clear, warm, dry - Musculoskeletal Musculoskeletal: gait normal, strength equal bilaterally - Psychiatric Psychiatric: appropriate mood/affect, intact judgment & insight - Neurologic Neurologic: CNII-XII intact, moves all extremities Plan Activity: advance as tolerated Diet: regular Wound: keep clean and dry, per your surgeon's advice Additional Instructions: leave ledezma in place until f/u with urology Follow up with: PRIMARY CARE, [Primary Care Provider] - 3-5 Days TOMA KO MD [Staff Physician] - 3 Days PATTY WEINBERG MD [Staff Physician] - 7 Days Prescriptions: Oxycodone HCl/Acetaminophen [Percocet 10/325 mg] 1 each PO Q6HR PRN #30 tablet PRN Reason: Pain
== END 2016-12-14 11:50 | disposition home or self-care (01) | DRG 352 ==
LOC: ED 23:37 → 4A 12-11 23:15 → 2B-SURG 12-13 18:05
PROVIDERS: ADMIT Internal Medicine; ATTEND Hospitalist
PROC: 0YQ50ZZ Repair Right Inguinal Region, Open Approach (ICD-10-PCS; principal; 2016-12-13)
DX: K40.91 Unilateral inguinal hernia, without obstruction or gangrene, recurrent (principal); R19.09 Other intra-abdominal and pelvic swelling, mass and lump; K21.9 Gastro-esophageal reflux disease without esophagitis; Z82.49 Family history of ischemic heart disease and other diseases of the circulatory system
CPT/HCPCS: 36415; 71010; 71275; 74174; 78452; 80048; 80061; 82140; 82550; 82553; 84153; 84484; 85025; 85610; 85730; 88304; 93005; 93010; 93017; 96361; 96374; A9502; C1781; J0360; J1100; J1170; J1650; J2250; J2270; J2405; J2704; J3010; J7030; J7120; Q9967; Q9968

== ENCOUNTER 2017-07-28 06:16 | Emergency (ER) | payer SELFPAY ==
[2017-07-28 07:02] VITALS: BP 139/82
--- NOTE | 2017-07-28 07:45 | Emergency Department Report ---
- General Chief complaint: Skin/Abscess/Foreign Body Stated complaint: BUMP ON SHOULDER BLADE Time Seen by Provider: 07/28/17 07:41 Source: patient, family Mode of arrival: Ambulatory Limitations: No Limitations - History of Present Illness Initial comments: Patient reports a cyst to his right shoulder blade that started two weeks ago complaint: rash Onset/Timin -: week(s) Tetanus Up to Date: no Location: back Severity: severe Severity scale (0 -10): 9 Quality: aching Consistency: constant Improves with: none Worsens with: movement Context: none Associated symptoms: athralgias Treatments Prior to Arrival: NSAID - Related Data Previous Rx's Medication Instructions Recorded Last Taken Type Oxycodone HCl/Acetaminophen 1 each PO Q6HR PRN #30 tablet 12/14/16 Unknown Rx [Percocet 10/325 mg] Acetaminophen/Codeine [Tylenol 1 tab PO Q6H PRN #12 tab 07/28/17 Unknown Rx /Codeine # 3 tab] Clindamycin [Clindamycin CAP] 300 mg PO Q8H #30 cap 07/28/17 Unknown Rx Allergies Allergy/AdvReac Type Severity Reaction Status Date / Time No Known Allergies Allergy Verified 07/28/17 06:58 Abscess Boil HPI - HPI Chief Complaint: Skin/Abscess/Foreign Body Stated Complaint: BUMP ON SHOULDER BLADE Home Medications: Previous Rx's Medication Instructions Recorded Last Taken Type Oxycodone HCl/Acetaminophen 1 each PO Q6HR PRN #30 tablet 12/14/16 Unknown Rx [Percocet 10/325 mg] Acetaminophen/Codeine [Tylenol 1 tab PO Q6H PRN #12 tab 07/28/17 Unknown Rx /Codeine # 3 tab] Clindamycin [Clindamycin CAP] 300 mg PO Q8H #30 cap 07/28/17 Unknown Rx Allergies/Adverse Reactions: Allergies Allergy/AdvReac Type Severity Reaction Status Date / Time No Known Allergies Allergy Verified 07/28/17 06:58 ED Review of Systems ROS: Stated complaint: BUMP ON SHOULDER BLADE Other details as noted in HPI Constitutional: denies: chills, diaphoresis, fever, malaise, weakness Respiratory: denies: cough, orthopnea, shortness of breath, SOB with exertion, SOB at rest, stridor, wheezing Cardiovascular: denies: chest pain, palpitations, dyspnea on exertion, orthopnea , edema, syncope, paroxysmal nocturnal dyspnea Gastrointestinal: denies: abdominal pain, nausea, vomiting, diarrhea, constipation Musculoskeletal: arthralgia (right shoulder blade). denies: joint swelling, myalgia Skin: rash (right shoulder blade) Neurological: denies: headache, weakness, numbness, paresthesias, confusion, abnormal gait Psychiatric: denies: depression, auditory hallucinations, visual hallucinations , homicidal thoughts, suicidal thoughts ED Past Medical Hx - Past Medical History Previous Medical History?: No Additional medical history: hernia repair - Surgical History Past Surgical History?: No - Social History Smoking Status: Never Smoker Substance Use Type: None - Medications Home Medications: Home Medications Medication Instructions Recorded Confirmed Last Taken Type Oxycodone HCl/Acetaminophen 1 each PO Q6HR PRN #30 tablet 12/14/16 Unknown Rx [Percocet 10/325 mg] Acetaminophen/Codeine [Tylenol 1 tab PO Q6H PRN #12 tab 07/28/17 Unknown Rx /Codeine # 3 tab] Clindamycin [Clindamycin CAP] 300 mg PO Q8H #30 cap 07/28/17 Unknown Rx ED Physical Exam - General Limitations: No Limitations General appearance: alert, in no apparent distress - Head Head exam: Present: atraumatic, normal inspection - Eye Eye exam: Present: normal appearance, PERRL, EOMI Pupils: Present: normal accommodation - ENT ENT exam: Present: normal exam - Neck Neck exam: Present: normal inspection, full ROM. Absent: tenderness, meningismus, lymphadenopathy, thyromegaly - Respiratory Respiratory exam: Present: normal lung sounds bilaterally. Absent: respiratory distress, wheezes, rales, rhonchi, stridor, chest wall tenderness, accessory muscle use, decreased breath sounds, prolonged expiratory - Cardiovascular Cardiovascular Exam: Present: regular rate, normal rhythm, normal heart sounds. Absent: bradycardia, tachycardia, irregular rhythm, systolic murmur, diastolic murmur, rubs, gallop, clicks, JVD, S3, S4 - GI/Abdominal GI/Abdominal exam: Present: soft, normal bowel sounds. Absent: distended, tenderness, guarding, rebound, rigid - Extremities Exam Extremities exam: Present: normal inspection, full ROM, normal capillary refill. Absent: tenderness, pedal edema, joint swelling - Back Exam Back exam: Present: full ROM, tenderness, rash noted, other (2 cm erythema with no fluctuant or drainage). Absent: CVA tenderness (R), CVA tenderness (L), muscle spasm, paraspinal tenderness, vertebral tenderness - Neurological Exam Neurological exam: Present: alert, oriented X3, CN II-XII intact, normal gait, reflexes normal. Absent: motor sensory deficit - Psychiatric Psychiatric exam: Present: normal affect, normal mood. Absent: depressed, agitated - Skin Skin exam: Present: warm, dry, intact, normal color ED Course Vital Signs 07/28/17 06:58 Temperature 98.3 F Pulse Rate 80 Respiratory 16 Rate Blood Pressure 139/82 O2 Sat by Pulse 100 Oximetry ED Medical Decision Making - Lab Data Vital Signs 07/28/17 06:58 Temperature 98.3 F Pulse Rate 80 Respiratory 16 Rate Blood Pressure 139/82 O2 Sat by Pulse 100 Oximetry - Medical Decision Making During the course of ED, all other systems were unremarkable except for documentation in HPI. Patient was sent home with prescriptions for Clindamycin and Tylenol #3, instructed to apply a warm compress to the area three times a day, he verbalized understanding - Differential Diagnosis Cellulitis, Abscess Critical care attestation.: If time is entered above; I have spent that time in minutes in the direct care of this critically ill patient, excluding procedure time. ED Disposition Clinical Impression: Cellulitis Disposition: [id number] TO HOME OR SELFCARE Is pt being admited?: No Does the pt Need Aspirin: No Condition: Stable Instructions: Cellulitis (ED) Additional Instructions: Take medication as directed. No drinking, driving or operating heavy machinery while taking pain medication. Apply a warm compress to the area three times a day. Return back to the ED for worsening symptoms such as fever, increase pain, redness or odor. Prescriptions: Acetaminophen/Codeine [Tylenol /Codeine # 3 tab] 1 tab PO Q6H PRN #12 tab PRN Reason: Pain Clindamycin [Clindamycin CAP] 300 mg PO Q8H #30 cap Referrals: PRIMARY CARE, [Primary Care Provider] - 3-5 Days JASMYNE MEDINA MD [Staff Physician] - 3-5 Days Time of Disposition: 07:49
== END 2017-07-28 08:03 | disposition home or self-care (01) ==
LOC: ED 06:16
DX: L03.113 Cellulitis of right upper limb (principal)
CPT/HCPCS: 99282

== ENCOUNTER 2018-04-26 18:13 | Emergency (ER) | payer SELFPAY ==
[2018-04-26 18:19] VITALS: BP 123/91
== END 2018-04-27 04:09 | disposition left against medical advice (07) ==
LOC: ED 18:13
DX: M79.672 Pain in left foot (principal); Z53.21 Procedure and treatment not carried out due to patient leaving prior to being seen by health care provider